=== PATIENT | female | born 1955 | race Caucasian/White ===

== ENCOUNTER 2016-03-31 16:53 | Emergency (ER) | payer MEDICAID | END 2016-03-31 17:00 | disposition home or self-care (01) | LOC: ER 16:53 | DX: R51 Headache (principal) ==

== ENCOUNTER 2016-04-01 15:21 | Emergency (ER) | payer MEDICAID ==
--- NOTE | 2016-04-01 16:16 | ED Physician Chart ---
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 I REVIEWED THE CHART AND NOTED THAT SHE HAD A CT SCAN. SHE STATES THAT SHE SPOKE TO HER PMD TODAY AND HE SENT HER HERE. Allergies:: Allergies Allergy/AdvReac Type Severity Reaction Status Date / Time Iodinated Contrast Media - Allergy Verified 01/26/16 18:57 IV Dye ketorolac tromethamine Allergy Verified 01/26/16 18:57 [From Toradol] nalbuphine HCl [From Nubain] Allergy Verified 01/26/16 18:57 sumatriptan [From Imitrex] Allergy Verified 01/26/16 18:57 Vitals:: Vital Signs - 8 hr 04/01/16 16:03 Temp 98.5 F HR 73 RR 17 BP 152/91 O2 Sat % 99 Historian:: Patient Review:: Nurse's Note Reviewed Review of Systems - Review of Systems General/Constitutional: No fever, No chills, No weight loss, No weakness, No diaphoresis, No edema, No loss of appetite Skin: No skin lesions, No rash, No bruising Head: Headache, No light-headedness Eyes: No loss of vision, No pain, No diplopia ENT: No earache, No nasal drainage, No sore throat, No tinnitus Neck: No neck pain, No swelling, No thyromegaly, No stiffness, No mass noted Cardio Vascular: No chest pain, No palpitations, No PND, No orthopnea, No edema Pulmonary: No SOB, No cough, No sputum, No wheezing GI: No nausea, No vomiting, No diarrhea, No pain, No melena, No hematochezia, No constipation, No hematemesis G/U: No dysuria, No frequency, No hematuria Musculoskeletal: No bone or joint pain, No back pain, No muscle pain Endocrine: No polyuria, No polydipsia Psychiatric: No prior psych history, No depression, No anxiety, No suicidal ideation Hematopoietic: No bruising, No lymphadenopathy Allergic/Immuno: No urticaria, No angioedema Neurological: No syncope, No focal symptoms, No weakness, No paresthesia, No headache, No seizure, No dizziness, No confusion, No vertigo Past Medical History - Past Medical History Obtainable: Yes Past Medical History: HTN, DM Family History: None Social History: Non Smoker, No Alcohol, Illicit Drug Use, Surgical History: None Psychiatricy History: Schizophrenia Medication: Reviewed Family Medical History - Family Member Mother History Unknown: Yes Physical Exam - Physical Examination General/Constitutional: Awake, Well-developed, well-nourished, Alert, No distress, GCS 15, Non-toxic appearing, Ambulatory Head: Atraumatic Eyes: Lids, conjuctiva normal, PERRL, EOMI Skin: Nl inspection, No rash, No skin lesions, No ecchymosis, Well hydrated, No lymphadenopathy ENMT: External ears, nose nl, Nasal exam nl, Lips, teeth, gums nl Neck: Nontender, Full ROM w/o pain, No JVD, No nuchal rigidity, No bruit, No mass, No stridor Respiratory: Nl effort/Exclusion, Clear to Auscultation, No Wheeze/Rhonchi/Rales Cardio Vascular: RRR, No murmur, gallop, rubs, NL S1 S2 GI: No tenderness/rebounding/guarding, No organomegaly, No hernia, Normal BS's, Nondistended, No mass/bruits, No McBurney tenderness : No CVA tenderness Extremities: No tenderness or effusion, Full ROM, normal strength in all extremities, No edema, Normal digits & nails Neuro/Psych: Alert/oriented, DTR's symmetric, Normal sensory exam, Normal motor strength, Judgement/insight normal, Mood normal, Normal gait, No focal deficits Misc: normal gait, Normal back, No paraspinal tenderness Assessment - Assessment General Assessment: ON EXAMINATION THERE WAS NO TENDERNESS, SWELLING OF THE AREA SHE CLAIMS THAT SHE INJURED. ED Septic Shock - . Is Septic Shock (SBP<90, OR Lactate>4 mmol\L) present?: No - <6hrs of presentation: Vital Signs: Vital Signs - 8 hr 04/01/16 16:03 Temp 98.5 F HR 73 RR 17 BP 152/91 O2 Sat % 99 Reassessment (Disposition) - Reassessment Reassessment Condition:: Unchanged - Diagnosis Diagnosis:: HEADACHE - Aftercare/Follow up Instructions Aftercare/Follow-Up Instructions:: Counseled pt regarding lab results/diagnosis & need follow up, Refer to Discharge Instructions, Counseled pt & family regarding lab results/diagnosis & need follow up Notes:: THE PATIENT REFUSED ORAL MEDICATION AND REQUEST DEMORAL OR DILAUDID IM WHICH I TOLD HER IT WAS NOT INDICATED. SHE WAS TOLD TO SEE HER PMD IN THE AM. Medication Prescribed:: FANATREX - Patient Disposition Discharge/Transfer:: Home Condition at Disposition:: Unchanged ED Discharge Plan - Patient Disposition Admit/Discharge/Transfer: PT DISCHARGED HOME Condition at Disposition: Unchanged Instructions: Cluster Headache, [id number]
== END 2016-04-01 16:28 | disposition home or self-care (01) ==
LOC: ER 15:21
DX: R51 Headache (principal); I10 Essential (primary) hypertension; E11.9 Type 2 diabetes mellitus without complications; F20.9 Schizophrenia, unspecified; Z88.6 Allergy status to analgesic agent; Z91.041 Radiographic dye allergy status
CPT/HCPCS: Z7502

== ENCOUNTER 2016-04-08 15:48 | Emergency (ER) | payer MEDICAID ==
--- NOTE | 2016-04-08 17:25 | ED Physician Chart ---
Chief Complaint/HPI - Patient Information Date Seen:: 04/08/16 Time Seen:: 17:24 Chief Complaint:: RECURRENT HEAD ACHES SINCE FEB 2016 WHEN SHE HAD HEAD INJURY History of Present Illness:: PT FELL OF OF BED IN EARLY FEBRUARY SUSTAINING BLUNT TRAUMA TO THE LT PARIETAL AREA. WORK WITH MOST RECENT CT SCAN OF THE BRAIN WAS APR 01, 2016 HERE AND READ NO ACUTE TRAUMATIC FINDINGS. Allergies:: Allergies Allergy/AdvReac Type Severity Reaction Status Date / Time Iodinated Contrast Media - Allergy Verified 01/26/16 18:57 IV Dye ketorolac tromethamine Allergy Verified 01/26/16 18:57 [From Toradol] nalbuphine HCl [From Nubain] Allergy Verified 01/26/16 18:57 sumatriptan [From Imitrex] Allergy Verified 01/26/16 18:57 Vitals:: Vital Signs - 8 hr 04/08/16 16:11 Temp 98.4 F HR 75 RR 17 BP 162/83 O2 Sat % 99 Review of Systems - Review of Systems General/Constitutional: No fever, No chills, No diaphoresis, No loss of appetite Skin: No skin lesions, No bruising, Other Head: Headache, No light-headedness Eyes: No loss of vision, No diplopia ENT: No earache, No sore throat, No tinnitus Neck: No neck pain, No stiffness, No mass noted Cardio Vascular: No chest pain Pulmonary: No SOB, No cough GI: No nausea, No vomiting, No pain G/U: No dysuria, No frequency, No hematuria Garment Alteration Examiner: No abnormal vaginal bleed Musculoskeletal: No bone or joint pain, No muscle pain Endocrine: No polyuria, No polydipsia Psychiatric: Prior psych history Hematopoietic: Bruising, Lymphadenopathy Allergic/Immuno: No urticaria, No angioedema Neurological: No syncope, No focal symptoms, No weakness, Headache, No seizure, No confusion Past Medical History - Past Medical History Past Medical History: HTN Social History: Non Smoker, No Alcohol, No Drug Use, Family Medical History - Family Member Mother History Unknown: Yes Other Medical History: denies family medical history Physical Exam - Physical Examination General/Constitutional: Well-developed, well-nourished, Alert, Non-toxic appearing, Ambulatory Head: Atraumatic Other Head comments:: No visible or palpable evidence of acute head injury.. Eyes: Lids, conjuctiva normal, PERRL, EOMI Skin: Nl inspection, No rash, No skin lesions, No ecchymosis, Well hydrated ENMT: External ears, nose nl, Nasal exam nl, Lips, teeth, gums nl, Oropharynx nl , Tonsils nl Neck: Nontender, Full ROM w/o pain, No JVD, No nuchal rigidity, No mass Respiratory: Nl effort/Exclusion, Clear to Auscultation, No Wheeze/Rhonchi/Rales Cardio Vascular: RRR, No murmur, gallop, rubs, NL S1 S2 Other Cardio Vascular comments:: Adequate pulses in all four extremities. GI: No tenderness/rebounding/guarding, No organomegaly, No hernia, Normal BS's, Nondistended, No mass/bruits, No McBurney tenderness : No CVA tenderness Extremities: No tenderness or effusion, Full ROM, normal strength in all extremities, No edema Neuro/Psych: Alert/oriented, Normal sensory exam, Normal motor strength, Judgement/insight normal, Mood normal, Normal gait, No focal deficits Misc: Normal back, No paraspinal tenderness Assessment - Assessment General Assessment: CASE SUMMARY: this 60-year-old female was referred to the emergency room by Dr. Steinberg her primary care physician for pain management. The patient has been having chronic pain in the left parietal area since she fell from bed and struck her nightstand. This was early February. A CT scan of the head from two days ago showed no traumatic injury. Patients neurologic exam was unremarkable. She was treated with Benadryl 50 mg Dilaudid 2 mg IM. Good relief of pain. PT was discharged in stable condition and advised to follow up with her primary care physician. Return to the emergency department for significant worsening of symptoms. No prescriptions provided the patient. ED Septic Shock - . Is Septic Shock (SBP<90, OR Lactate>4 mmol\L) present?: No - <6hrs of presentation: Vital Signs: Vital Signs - 8 hr 04/08/16 16:11 Temp 98.4 F HR 75 RR 17 BP 162/83 O2 Sat % 99 Reassessment (Disposition) - Reassessment Reassessment Condition:: Improved - Diagnosis Diagnosis:: POST TRAUMATIC HEADACHE - Aftercare/Follow up Instructions Aftercare/Follow-Up Instructions:: Refer to Discharge Instructions ED Discharge Plan - Patient Disposition Admit/Discharge/Transfer: PT DISCHARGED HOME Condition at Disposition: Stable Instructions: Post-Concussion Syndrome, [id number] Accepting Physician: Maryan Murray [Other] - 1-3 Days
[2016-04-08] MEDS ORDERED: HYDROmorphone 2 mg/mL 1mL Vial IM STA (17:47)
[2016-04-08] MEDS ORDERED: HYDROmorphone 1 mg/mL 1mL Syr ONE (17:51)
== END 2016-04-08 18:25 | disposition home or self-care (01) ==
LOC: ER 15:48
DX: G44.329 Chronic post-traumatic headache, not intractable (principal); I10 Essential (primary) hypertension; Z88.6 Allergy status to analgesic agent; Z88.8 Allergy status to other drugs, medicaments and biological substances; Z91.041 Radiographic dye allergy status
CPT/HCPCS: J1170; J1200; Z7502

== ENCOUNTER 2016-05-06 17:20 | Emergency (ER) | payer MEDICAID | END 2016-05-06 17:33 | disposition short-term general hospital (02) | LOC: ER 17:20 | DX: R51 Headache (principal) ==

== ENCOUNTER 2017-03-27 20:23 | Emergency (ER) | payer MEDICAID ==
--- NOTE | 2017-03-27 22:30 | ED Physician Chart ---
ED Chief Complaint/HPI - Patient Information Date Seen:: 03/27/17 Time Seen:: 22:30 Chief Complaint:: chronic left leg pain History of Present Illness:: location: left lower limb quality: achy pain severity: mild duration: many years context: pt with know left lower limb sciatica for many years. has been to her primary physician for evaluation and receives a regular script of tylenol #3 and muscle relaxant. says these medications usually handle her pain. then she goes to hospitals for stronger medications whenever she has more pain and says they usually give her morphine and benadryl and then send her home. pt says she would like morphine and benadryl. no paralysis or paresthesia. no bowel or bladder incontinence. normal gait observed by staff as patient walked into ER. from parking lot. staff report pt appears to have driven herself to the ER but states to staff that her dropped her off at hospital. pain is at left thigh, non -radiating chronic, sharp achy pain. mod factors; none assoc s/s; none hx from pt. no prior left hip surgery recent right hip surgery hx from pt. Allergies:: Allergies Allergy/AdvReac Type Severity Reaction Status Date / Time Iodinated Contrast Media - Allergy Verified 03/27/17 20:36 IV Dye ketorolac tromethamine Allergy Verified 03/27/17 20:36 [From Toradol] nalbuphine HCl [From Nubain] Allergy Verified 03/27/17 20:36 sumatriptan [From Imitrex] Allergy Verified 03/27/17 20:36 Vitals:: Vital Signs - 8 hr 03/27/17 20:30 Temp 97.7 F HR 71 RR 18 O2 Sat % 94 Historian:: Patient Review:: Nurse's Note Reviewed ED Review of Systems - Review of Systems General/Constitutional: No fever, No chills, No weight loss, No weakness, No diaphoresis, No edema, No loss of appetite Skin: No skin lesions, No rash, No bruising Head: No headache, No light-headedness Eyes: No loss of vision, No pain, No diplopia ENT: No earache, No nasal drainage, No sore throat, No tinnitus Neck: No neck pain, No swelling, No thyromegaly, No stiffness, No mass noted Cardio Vascular: No chest pain, No palpitations, No PND, No orthopnea, No edema Pulmonary: No SOB, No cough, No sputum, No wheezing GI: No nausea, No vomiting, No diarrhea, No pain, No melena, No hematochezia, No constipation, No hematemesis G/U: No dysuria, No frequency, No hematuria Musculoskeletal: No bone or joint pain, No back pain, No muscle pain Endocrine: No polyuria, No polydipsia Psychiatric: No prior psych history, No depression, No anxiety, No suicidal ideation Hematopoietic: No bruising, No lymphadenopathy Allergic/Immuno: No urticaria, No angioedema Neurological: No syncope, No focal symptoms, No weakness, No paresthesia, No headache, No seizure, No dizziness, No confusion, No vertigo ED Past Medical History - Past Medical History Past Medical History: PUD/GERD, Thyroid disorder, Other (migraine headaches) Family History: None Social History: Non Smoker, No Alcohol, No Drug Use, Surgical History: other (right hip surgery) Psychiatricy History: Other Medication: Reviewed Family Medical History - Family Member Mother History Unknown: Yes ED Physical Exam - Physical Examination General/Constitutional: Awake, Well-developed, well-nourished, Alert, No distress, GCS 15, Non-toxic appearing, Ambulatory Head: Atraumatic Eyes: Lids, conjuctiva normal, PERRL, EOMI Skin: Nl inspection, No rash, No skin lesions, No ecchymosis, Well hydrated, No lymphadenopathy ENMT: External ears, nose nl, Nasal exam nl, Lips, teeth, gums nl Neck: Nontender, Full ROM w/o pain, No JVD, No nuchal rigidity, No bruit, No mass, No stridor Respiratory: Nl effort/Exclusion, Clear to Auscultation, No Wheeze/Rhonchi/Rales Cardio Vascular: RRR, No murmur, gallop, rubs, NL S1 S2 GI: No tenderness/rebounding/guarding : No CVA tenderness Extremities: No tenderness or effusion, Full ROM, normal strength in all extremities, No edema, Normal digits & nails Neuro/Psych: Alert/oriented, DTR's symmetric, Normal sensory exam, Normal motor strength, Judgement/insight normal, Mood normal, Normal gait, No focal deficits Misc: Normal back, No paraspinal tenderness ED Assessment - Assessment General Assessment: pt with normal exam during ER stay ED Septic Shock - . Is Septic Shock (SBP<90, OR Lactate>4 mmol\L) present?: No - <6hrs of presentation: Vital Signs: Vital Signs - 8 hr 03/27/17 20:30 Temp 97.7 F HR 71 RR 18 O2 Sat % 94 ED Reassessment (Disposition) - Reassessment Reassessment:: pt in stable condition during ER stay. pt with normal vital signs, no hypertension. no observable acute discomfort. pt appears very comfortable while sitting on hospital [facility]. Reassessment Condition:: Unchanged - Diagnosis Diagnosis:: chronic left lower limb sciatic and sciatica pain - Aftercare/Follow up Instructions Aftercare/Follow-Up Instructions:: Refer to Discharge Instructions Notes:: please go to the clinic to your regular doctor to be prescribed stronger or more effective pain medications. Medication Prescribed:: no medications are prescribed at this visit - Patient Disposition Discharge/Transfer:: Home Condition at Disposition:: Stable
== END 2017-03-27 22:50 ==
LOC: ER 20:23
DX: G57.02 Lesion of sciatic nerve, left lower limb (principal); G89.29 Other chronic pain; K21.9 Gastro-esophageal reflux disease without esophagitis; Z87.11 Personal history of peptic ulcer disease
CPT/HCPCS: Z7502

== ENCOUNTER 2017-09-20 19:02 | Emergency (ER) | payer MEDICAID ==
[2017-09-20] MEDS ORDERED: Morphine Sulfate 2 mg/mL 1mL Syr IM STA (19:22)
[2017-09-20] MEDS ORDERED: Morphine Sulfate 2 mg/mL 1mL Syr ONE (19:28)
--- NOTE | 2017-09-21 09:36 | ED Physician Chart ---
ED Chief Complaint/HPI - Patient Information Date Seen:: 09/21/17 Time Seen:: 19:00 Chief Complaint:: Back Pain History of Present Illness:: onset x 3 days of dull, intermittent, MS type LBP and Hip Pain radiating to LLE ; pt denies trauma, H/As, S/T, LOC, ALOC, AMS, neck pain, weakness, dizziness, paresthesias, vertigo, cough, C/P, SOB, Abd. Pain, A/N/V/D/C, fever, chills, or urinary s/s; no gait changes; pt denies leg/calf pain Allergies:: Allergies Allergy/AdvReac Type Severity Reaction Status Date / Time Iodinated Contrast- Oral and Allergy Verified 03/27/17 20:36 IV Dye [Iodinated Contrast Media - IV Dye] ketorolac tromethamine Allergy Verified 03/27/17 20:36 [From Toradol] nalbuphine HCl [From Nubain] Allergy Verified 03/27/17 20:36 sumatriptan [From Imitrex] Allergy Verified 03/27/17 20:36 Historian:: Patient, Family Member Review:: Nurse's Note Reviewed ED Review of Systems - Review of Systems General/Constitutional: No fever, No chills, No weight loss, No weakness, No diaphoresis, No edema, No loss of appetite Skin: No skin lesions, No rash, No bruising Head: No headache, No light-headedness Eyes: No loss of vision, No pain, No diplopia ENT: No earache, No nasal drainage, No sore throat, No tinnitus Neck: No neck pain, No swelling, No thyromegaly, No stiffness, No mass noted Cardio Vascular: No chest pain, No palpitations, No PND, No orthopnea, No edema Pulmonary: No SOB, No cough, No sputum, No wheezing GI: No nausea, No vomiting, No diarrhea, No pain, No melena, No hematochezia, No constipation, No hematemesis G/U: No dysuria, No frequency, No hematuria, No nacturia Lime Puller: No vaginal discharge, No abnormal vaginal bleed, No contraction Musculoskeletal: No bone or joint pain, Back pain, Muscle pain Endocrine: No polyuria, No polydipsia Psychiatric: No prior psych history, No depression, No anxiety, No suicidal ideation, No homicidal ideation, No auditory hallucination, No visual hallucination Hematopoietic: No bruising, No lymphadenopathy Allergic/Immuno: No urticaria, No angioedema Neurological: No syncope, No focal symptoms, No weakness, No paresthesia, No headache, No seizure, No dizziness, No confusion, No vertigo ED Past Medical History - Past Medical History Obtainable: Yes Past Medical History: HTN, Dyslipidemia, Arthritis Family History: HTN Social History: Non Smoker, No Alcohol, No Drug Use, Surgical History: None Psychiatricy History: None Medication: Reviewed Family Medical History - Family Member Mother History Unknown: Yes ED Physical Exam - Physical Examination General/Constitutional: Awake, Well-developed, well-nourished, Alert, No distress, GCS 15, Non-toxic appearing, Ambulatory Head: Atraumatic Eyes: Lids, conjuctiva normal, PERRL, EOMI Skin: Nl inspection, No rash, No skin lesions, No ecchymosis, Well hydrated, No lymphadenopathy ENMT: External ears, nose nl, TM canals nl, Nasal exam nl, Lips, teeth, gums nl , Oropharynx nl, Tonsils nl Neck: Nontender, Full ROM w/o pain, No JVD, No nuchal rigidity, No bruit, No mass, No stridor Other Neck comments:: supple; no meningeal signs; no cervical tenderness; no bruits Respiratory: Nl effort/Exclusion, Clear to Auscultation, No Wheeze/Rhonchi/Rales Cardio Vascular: RRR, No murmur, gallop, rubs, NL S1 S2, Carotid/Femoral/Distal pulses equal bilaterally GI: No tenderness/rebounding/guarding, No organomegaly, No hernia, Normal BS's, Nondistended, No mass/bruits, No McBurney tenderness, Rectum exam nl Other GI comments:: no pulsatile masses : No CVA tenderness Extremities: No tenderness or effusion, Full ROM, normal strength in all extremities, No edema, Normal digits & nails Other Extremities comments:: + L-S bilateral paravertebral and Bilateral Hip paravertebral soft tissue tenderness with no loss of ROMs; no ligament instability; DTRs: 2+ bilaterally; Gait: WNL; no calf tenderness; -Steve's Sign; good motor, tendon, and sensory functions; good NV functions Neuro/Psych: Alert/oriented, DTR's symmetric, Normal sensory exam, Normal motor strength, Judgement/insight normal, Mood normal, Normal gait, No focal deficits Other Neuro/Psych comments:: no focal signs Misc: Normal back, No paraspinal tenderness ED Labs/Radiology/EKG Results - Lab Results Comments:: deferred by pt - Radiology Results Comments:: deferred by pt ED Septic Shock - . Is Septic Shock (SBP<90, OR Lactate>4 mmol\L) present?: No ED Reassessment (Disposition) - Reassessment Reassessment:: pt is asymptomatic upon discharge Reassessment Condition:: Improved - Diagnosis Diagnosis:: Back Pain; Hip Pain; L-S Strain; Hip Sprains and Strains; Sciatica; Lumbar- Sacral Strain; Sprains and Strains; - Aftercare/Follow up Instructions Aftercare/Follow-Up Instructions:: Counseled pt regarding lab results/diagnosis & need follow up, Refer to Discharge Instructions, Counseled pt & family regarding lab results/diagnosis & need follow up - Patient Disposition Discharge/Transfer:: Home Condition at Disposition:: Stable, Improved (RTER prn if existing s/s reoccur and/or get worse and/or any other new s/s occur; ACIs given for all above Dx; Imaging Instructions; Refer to Spinal Specialist/Orthopedist/Neurologist/ Guard Lieutenant VALERY; F/U with PMD in one day or prn; RTER prn if concerned) ED Discharge Plan - Patient Disposition Admit/Discharge/Transfer: PT DISCHARGED HOME Condition at Disposition: Improved Instructions: Hip Pain Additional Instructions: follow up with primary doctor in the morning
== END 2017-09-20 20:00 | disposition home or self-care (01) ==
LOC: ER 19:02
DX: S73.101A Unspecified sprain of right hip, initial encounter (principal); S73.102A Unspecified sprain of left hip, initial encounter; S39.012A Strain of muscle, fascia and tendon of lower back, initial encounter; M54.42 Lumbago with sciatica, left side; M54.41 Lumbago with sciatica, right side; I10 Essential (primary) hypertension; E78.5 Hyperlipidemia, unspecified; M19.90 Unspecified osteoarthritis, unspecified site; Z88.5 Allergy status to narcotic agent; Z88.8 Allergy status to other drugs, medicaments and biological substances; Z91.041 Radiographic dye allergy status; X58.XXXA Exposure to other specified factors, initial encounter; Y93.89 Activity, other specified; Y92.89 Other specified places as the place of occurrence of the external cause; Y99.8 Other external cause status
CPT/HCPCS: 99283; 96372; J2270; Z7502

== ENCOUNTER 2017-10-03 18:08 | Emergency (ER) | payer MEDICAID ==
--- NOTE | 2017-10-03 19:46 | ED Physician Chart ---
ED Chief Complaint/HPI - Patient Information Date Seen:: 10/03/17 Time Seen:: 19:42 Chief Complaint:: Left hip pain and left leg pain History of Present Illness:: 62 yo female was brought by to ER for evaluation of chronic left hip pain and left leg pain worsening for 2 days. Patient ambulated from the car to ER bed. Patient stated that morphine and benadryl had helped with the pain. Allergies:: Allergies Allergy/AdvReac Type Severity Reaction Status Date / Time Iodinated Contrast- Oral and Allergy Verified 03/27/17 20:36 IV Dye [Iodinated Contrast Media - IV Dye] ketorolac tromethamine Allergy Verified 03/27/17 20:36 [From Toradol] nalbuphine HCl [From Nubain] Allergy Verified 03/27/17 20:36 sumatriptan [From Imitrex] Allergy Verified 03/27/17 20:36 Vitals:: Vital Signs - 8 hr 10/03/17 18:34 Temp 98.5 F HR 96 RR 16 BP 138/90 O2 Sat % 99 ED Past Medical History - Past Medical History Past Medical History: Other (, obesity) Social History: Non Smoker, No Alcohol, No Drug Use Surgical History: Appendectomy, , other (Right total hip replacement, tubal ligation) Family Medical History - Family Member Mother History Unknown: Yes ED Septic Shock - <6hrs of presentation: Vital Signs: Vital Signs - 8 hr 10/03/17 18:34 Temp 98.5 F HR 96 RR 16 BP 138/90 O2 Sat % 99
[2017-10-03] MEDS ORDERED: Morphine Sulfate 2 mg/mL 1mL Syr IM STA (21:36)
[2017-10-03] MEDS ORDERED: Morphine Sulfate 2 mg/mL 1mL Syr ONE (21:38)
--- NOTE | 2017-10-04 08:51 | Diagnostic Imaging Report ---
Lumbar spine 3 views Indication: Left lower extremity pain Comparison: none Findings: No evidence of an acute compression fracture or subluxation. Mild to moderate degenerative changes are noted including minimal disc space loss of height at T11/T12 and T12/L1. [id number] facet degenerative changes are seen greatest in the lower lumbar spine. Density likely due to previous postsurgical changes are seen along the lower abdomen and pelvis on the frontal view. Degenerative changes of the SI joints are noted. Impression: [id number] generalized degenerative changes. No evidence of an acute compression fracture or subluxation. Densities, likely previous postsurgical changes projecting along the lower abdomen and pelvic region on the frontal views. Please correlate with clinical history. If necessary CT follow-up would provide additional detail and assessment. In the setting of trauma, if clinical symptoms persist and there is continued concern for an occult fracture, follow up exams in 5-7 days is suggested.
--- NOTE | 2017-10-04 08:53 | Diagnostic Imaging Report ---
Pelvis and left hip 2 views Indication: Left hip pain Comparison: none Findings: There is partially visualized right hip arthroplasty. [id number] degenerative changes of the left hip joint are noted with mild joint space loss. No acute fracture or subluxation. No significant focal soft tissue swelling. Postsurgical changes of the lower abdomen and pelvis are noted. External densities are seen projecting along the pelvis. Impression: Mild to moderate degenerative changes of the left hip joint. No evidence of an acute fracture or dislocation. Partially visualized right hip arthroplasty. In the setting of trauma, if clinical symptoms persist and there is continued concern for an occult fracture, follow up exams in 5-7 days is suggested.
== END 2017-10-03 21:55 | disposition home or self-care (01) ==
LOC: ER 18:08
DX: M25.552 Pain in left hip (principal); M79.605 Pain in left leg; G89.29 Other chronic pain; Z88.6 Allergy status to analgesic agent; Z88.5 Allergy status to narcotic agent; Z91.041 Radiographic dye allergy status; Z90.49 Acquired absence of other specified parts of digestive tract; Z98.890 Other specified postprocedural states
CPT/HCPCS: 99284; 96372; 72100; 73502; J2270; 73501; Z7502

== ENCOUNTER 2017-10-18 00:49 | Emergency (ER) | payer MEDICAID ==
--- NOTE | 2017-10-18 01:30 | ED Physician Chart ---
ED Chief Complaint/HPI - Patient Information Date Seen:: 10/18/17 Time Seen:: 01:30 Chief Complaint:: Left hip pain History of Present Illness:: 62 yo female ambulated into the ER for left hip pain. Patient stated that she saw her orthopedics and authorization from insurance was still pending. Allergies:: Allergies Allergy/AdvReac Type Severity Reaction Status Date / Time Iodinated Contrast- Oral and Allergy Verified 03/27/17 20:36 IV Dye [Iodinated Contrast Media - IV Dye] ketorolac tromethamine Allergy Verified 03/27/17 20:36 [From Toradol] nalbuphine HCl [From Nubain] Allergy Verified 03/27/17 20:36 sumatriptan [From Imitrex] Allergy Verified 03/27/17 20:36 Vitals:: Vital Signs - 8 hr 10/18/17 00:50 Temp 99.0 F HR 100 RR 18 BP 149/89 O2 Sat % 95 ED Review of Systems - Review of Systems General/Constitutional: No fever Skin: No skin lesions Head: No headache Eyes: No pain ENT: No nasal drainage Neck: No neck pain Cardio Vascular: No chest pain Pulmonary: No SOB GI: No nausea, No vomiting Musculoskeletal: Bone or joint pain Neurological: No focal symptoms ED Past Medical History - Past Medical History Past Medical History: Other (Chronic left hip pain, , obesity) Social History: Non Smoker, No Alcohol, No Drug Use Surgical History: Appendectomy, , other (R total hip replacement) Family Medical History - Family Member Mother History Unknown: Yes ED Physical Exam - Physical Examination General/Constitutional: Awake, Alert Head: Atraumatic Eyes: PERRL Skin: No skin lesions ENMT: Nasal exam nl Neck: No nuchal rigidity Respiratory: Clear to Auscultation Cardio Vascular: RRR, No murmur, gallop, rubs, NL S1 S2 GI: No tenderness/rebounding/guarding Other Extremities comments:: Left hip joint painful and limited ROM Neuro/Psych: No focal deficits ED Assessment - Assessment General Assessment: Chronic left hip pain likely due to DJD Possible pain medication seeking behavior Assessment/Comments:: D/c home F/u PCP and orthopedics ED Septic Shock - . Is Septic Shock (SBP<90, OR Lactate>4 mmol\L) present?: No - <6hrs of presentation: Vital Signs: Vital Signs - 8 hr /15/18 00:50 Temp 99.0 F HR 100 RR 18 BP 149/89 O2 Sat % 95 ED Reassessment (Disposition) - Reassessment Reassessment Condition:: Unchanged - Patient Disposition Discharge/Transfer:: Home
== END 2017-10-18 01:30 | disposition home or self-care (01) ==
LOC: ER 00:49
DX: M25.552 Pain in left hip (principal); G89.29 Other chronic pain; Z90.49 Acquired absence of other specified parts of digestive tract; Z98.890 Other specified postprocedural states; Z88.6 Allergy status to analgesic agent; Z91.041 Radiographic dye allergy status
CPT/HCPCS: Z7502

== ENCOUNTER 2017-11-01 16:12 | Emergency (ER) | payer MEDICAID ==
--- NOTE | 2017-11-01 18:15 | ED Physician Chart ---
ED Chief Complaint/HPI - Patient Information Date Seen:: 11/01/17 Time Seen:: 16:15 Chief Complaint:: Left Hip Pain History of Present Illness:: onset x 5 days of dull, intermittent, MS type left hip pain; pt denies trauma, H /As, neck pain, C/P, SOB, Abd. Pain, Back pain/Flank Pain, A/N/V/D/C, fever, chills, or urinary s/s; pt denies weakness, dizziness, paresthesias, vertigo, gait changes; pt's last tetanus shot: < 5 years; UTD Allergies:: Allergies Allergy/AdvReac Type Severity Reaction Status Date / Time Iodinated Contrast- Oral and Allergy Verified 11/01/17 16:40 IV Dye [Iodinated Contrast Media - IV Dye] ketorolac tromethamine Allergy Verified 11/01/17 16:40 [From Toradol] nalbuphine HCl [From Nubain] Allergy Verified 11/01/17 16:40 sumatriptan [From Imitrex] Allergy Verified 11/01/17 16:40 Vitals:: Vital Signs - 8 hr 11/01/17 16:16 Temp 97.3 F HR 88 RR 18 BP 125/67 O2 Sat % 96 Historian:: Patient Review:: Nurse's Note Reviewed ED Review of Systems - Review of Systems General/Constitutional: No fever, No chills, No weight loss, No weakness, No diaphoresis, No edema, No loss of appetite Skin: No skin lesions, No rash, No bruising Head: No headache, No light-headedness Eyes: No loss of vision, No pain, No diplopia ENT: No earache, No nasal drainage, No sore throat, No tinnitus Neck: No neck pain, No swelling, No thyromegaly, No stiffness, No mass noted Cardio Vascular: No chest pain, No palpitations, No PND, No orthopnea, No edema Pulmonary: No SOB, No cough, No sputum, No wheezing GI: No nausea, No vomiting, No diarrhea, No pain, No melena, No hematochezia, No constipation, No hematemesis G/U: No dysuria, No frequency, No hematuria, No nacturia [employer]: No vaginal discharge, No abnormal vaginal bleed, No contraction Musculoskeletal: Bone or joint pain, No back pain, Muscle pain Endocrine: No polyuria, No polydipsia Psychiatric: No prior psych history, No depression, No anxiety, No suicidal ideation, No homicidal ideation, No auditory hallucination, No visual hallucination Hematopoietic: No bruising, No lymphadenopathy Allergic/Immuno: No urticaria, No angioedema Neurological: No syncope, No focal symptoms, No weakness, No paresthesia, No headache, No seizure, No dizziness, No confusion, No vertigo ED Past Medical History - Past Medical History Obtainable: Yes Past Medical History: HTN, Arthritis, Other (Chronic Pain Syndrome) Family History: HTN Social History: Non Smoker, No Alcohol, No Drug Use, Surgical History: HIP Psychiatricy History: None Medication: Reviewed Family Medical History - Family Member Mother History Unknown: Yes ED Physical Exam - Physical Examination General/Constitutional: Awake, Well-developed, well-nourished, Alert, No distress, GCS 15, Non-toxic appearing, Ambulatory Head: Atraumatic Eyes: Lids, conjuctiva normal, PERRL, EOMI Skin: Nl inspection, No rash, No skin lesions, No ecchymosis, Well hydrated, No lymphadenopathy ENMT: External ears, nose nl, TM canals nl, Nasal exam nl, Lips, teeth, gums nl , Oropharynx nl, Tonsils nl Neck: Nontender, Full ROM w/o pain, No JVD, No nuchal rigidity, No bruit, No mass, No stridor Other Neck comments:: supple; no meningeal signs; no cervical tenderness; no bruits Respiratory: Nl effort/Exclusion, Clear to Auscultation, No Wheeze/Rhonchi/Rales Cardio Vascular: RRR, No murmur, gallop, rubs, NL S1 S2, Carotid/Femoral/Distal pulses equal bilaterally GI: No tenderness/rebounding/guarding, No organomegaly, No hernia, Normal BS's, Nondistended, No mass/bruits, No McBurney tenderness, Rectum exam nl Other GI comments:: no pulsatile masses; good BS : No CVA tenderness Extremities: No tenderness or effusion, Full ROM, normal strength in all extremities, No edema, Normal digits & nails Other Extremities comments:: + Mild Left Hip Tenderness upon passive ROMs; no loss of ROMs; full active ROMs ; DTRs: 2+ bilaterally; Gait: WNL; no ligament instability; good motor, tendon, and sensory functions; no septic joints; no contusions; no wounds; no cellulitis ; no FBs; + DJD Changes; good NV functions; Neuro/Psych: Alert/oriented, DTR's symmetric, Normal sensory exam, Normal motor strength, Judgement/insight normal, Mood normal, Normal gait, No focal deficits Other Neuro/Psych comments:: no focal signs Misc: Normal back, No paraspinal tenderness ED Labs/Radiology/EKG Results - Radiology Results Comments:: deferred by pt ED Septic Shock - . Is Septic Shock (SBP<90, OR Lactate>4 mmol\L) present?: No - <6hrs of presentation: Vital Signs: Vital Signs - 8 hr 11/01/17 16:16 Temp 97.3 F HR 88 RR 18 BP 125/67 O2 Sat % 96 ED Reassessment (Disposition) - Reassessment Reassessment:: pt is asymptomatic upon discharge Reassessment Condition:: Improved - Diagnosis Diagnosis:: Left Hip Pain; Left Hip Sprains and Strains; Osteoarthritis; Chronic Pain Syndrome - Aftercare/Follow up Instructions Aftercare/Follow-Up Instructions:: Counseled pt regarding lab results/diagnosis & need follow up, Refer to Discharge Instructions, Counseled pt & family regarding lab results/diagnosis & need follow up - Patient Disposition Discharge/Transfer:: Home Condition at Disposition:: Stable, Improved (RTER prn if existing s/s reoccur and/or get worse and/or any other new s/s occur; ACIs given for all above Dx; Refer to Orthopedist/Anesthesiologist/Commander Internal Affairs/Job Superintendent VLAERY; Refer to [facility]; F/U with PMD in one day or prn; RTER prn if concerned)
== END 2017-11-01 16:50 | disposition home or self-care (01) ==
LOC: ER 16:12
DX: S73.102A Unspecified sprain of left hip, initial encounter (principal); S76.012A Strain of muscle, fascia and tendon of left hip, initial encounter; G89.4 Chronic pain syndrome; M16.12 Unilateral primary osteoarthritis, left hip; I10 Essential (primary) hypertension; Z98.890 Other specified postprocedural states; X58.XXXA Exposure to other specified factors, initial encounter; Y93.89 Activity, other specified; Y92.89 Other specified places as the place of occurrence of the external cause; Y99.8 Other external cause status
CPT/HCPCS: Z7502

== ENCOUNTER 2018-04-05 16:50 | Emergency (ER) | payer MEDICAID ==
--- NOTE | 2018-04-05 17:26 | ED Physician Chart ---
ED Chief Complaint/HPI - Patient Information Date Seen:: 04/05/18 Chief Complaint:: left hip pain History of Present Illness:: Patient's had left ear pain since 2017. No recent trauma. She was told she has arthritis in her left hip and is awaiting left hip replacement surgery. Left hip pain has been increased all day today. Allergies:: Allergies Allergy/AdvReac Type Severity Reaction Status Date / Time Iodinated Contrast- Oral and Allergy Verified 04/05/18 16:59 IV Dye [Iodinated Contrast Media - IV Dye] ketorolac tromethamine Allergy Verified 04/05/18 16:59 [From Toradol] nalbuphine HCl [From Nubain] Allergy Verified 04/05/18 16:59 sumatriptan [From Imitrex] Allergy Verified 04/05/18 16:59 Vitals:: Vital Signs - 8 hr 04/05/18 16:59 Temp 97.8 F HR 85 RR 18 BP 132/74 O2 Sat % 95 Historian:: Patient Review:: Nurse's Note Reviewed ED Review of Systems - Review of Systems General/Constitutional: No fever, No chills, No weight loss, No weakness, No diaphoresis, No edema, No loss of appetite Skin: No skin lesions, No rash, No bruising Head: No headache, No light-headedness Eyes: No loss of vision, No pain, No diplopia ENT: No earache, No nasal drainage, No sore throat, No tinnitus Neck: No neck pain, No swelling, No thyromegaly, No stiffness, No mass noted Cardio Vascular: No chest pain, No palpitations, No PND, No orthopnea, No edema Pulmonary: No SOB, No cough, No sputum, No wheezing GI: No nausea, No vomiting, No diarrhea, No pain, No melena, No hematochezia, No constipation, No hematemesis G/U: No dysuria, No frequency, No hematuria Musculoskeletal: No back pain, No muscle pain, Other (left hip pain) Endocrine: No polyuria, No polydipsia Psychiatric: No prior psych history, No depression, No anxiety, No suicidal ideation Hematopoietic: No bruising, No lymphadenopathy Allergic/Immuno: No urticaria, No angioedema Neurological: No syncope, No focal symptoms, No weakness, No paresthesia, No headache, No seizure, No dizziness, No confusion, No vertigo ED Past Medical History - Past Medical History Past Medical History: DM, PUD/GERD, Thyroid disorder, Other (bipolar; hypothyroidism) Social History: Non Smoker, No Alcohol, Surgical History: other (tonsillectomy and tubal ligation) Medication: Reviewed Family Medical History - Family Member Mother History Unknown: Yes ED Physical Exam - Physical Examination General/Constitutional: Awake, Well-developed, well-nourished, Alert, No distress, GCS 15, Non-toxic appearing, Ambulatory Head: Atraumatic Eyes: Lids, conjuctiva normal, PERRL, EOMI Skin: Nl inspection, No rash, No skin lesions, No ecchymosis, Well hydrated, No lymphadenopathy ENMT: External ears, nose nl, Nasal exam nl, Lips, teeth, gums nl Neck: Nontender, Full ROM w/o pain, No JVD, No nuchal rigidity, No bruit, No mass, No stridor Respiratory: Nl effort/Exclusion, Clear to Auscultation, No Wheeze/Rhonchi/Rales Cardio Vascular: RRR, No murmur, gallop, rubs, NL S1 S2 GI: No tenderness/rebounding/guarding, No organomegaly, No hernia, Normal BS's, Nondistended, No mass/bruits, No McBurney tenderness : No CVA tenderness Extremities: No tenderness or effusion, Full ROM, normal strength in all extremities, No edema, Normal digits & nails Neuro/Psych: Alert/oriented, DTR's symmetric, Normal sensory exam, Normal motor strength, Judgement/insight normal, Mood normal, Normal gait, No focal deficits Misc: Normal back, No paraspinal tenderness Other Misc comments:: Flexion abduction external rotation left hip causes left lateral hip pain ED Assessment - Assessment General Assessment: Patient states she usually gets a shot of morphine and Benadryl. I will give her 50mg of Benadryl intramuscularly but no morphine. Patient states her will drive her home. ED Septic Shock - . Is Septic Shock (SBP<90, OR Lactate>4 mmol\L) present?: No - <6hrs of presentation: Vital Signs: Vital Signs - 8 hr 04/05/18 16:59 Temp 97.8 F HR 85 RR 18 BP 132/74 O2 Sat % 95 ED Reassessment (Disposition) - Reassessment Reassessment Condition:: Unchanged - Diagnosis Diagnosis:: Left hip pain; bipolar disorder - Aftercare/Follow up Instructions Aftercare/Follow-Up Instructions:: Refer to Discharge Instructions - Patient Disposition Discharge/Transfer:: Home Condition at Disposition:: Stable, Unchanged
== END 2018-04-05 17:55 | disposition home or self-care (01) ==
LOC: ER 16:50
DX: M25.552 Pain in left hip (principal); F31.9 Bipolar disorder, unspecified; E11.9 Type 2 diabetes mellitus without complications; K21.9 Gastro-esophageal reflux disease without esophagitis; E07.9 Disorder of thyroid, unspecified; Z88.6 Allergy status to analgesic agent; Z91.041 Radiographic dye allergy status; Z88.8 Allergy status to other drugs, medicaments and biological substances
CPT/HCPCS: J1200; Z7502